=== PATIENT | male | born 1985 | race Hispanic/Latino ===

== ENCOUNTER 2020-02-07 17:11 | Inpatient (IN) | payer MEDICAID, OTHER, SELFPAY ==
[~2020-02-07 17:11] MED LIST: Iopamidol 370 76% 100 ML VIAL ONE
[2020-02-07] MEDS ORDERED: CEFAZOLIN 1 GM VIAL ONE (17:20)
[2020-02-07] MEDS ORDERED: Adacel (T-DAP) 0.5 ML SYRINGE ONE (17:20)
[2020-02-07 17:25] LABS: Base Excess-Venous -3.7 mmol/L (-2.0 to 3.0); Bicarbonate (HCO3v) 23.9 mmol/L (22.0-28.0); CO2 Tension (PvCO2) 51.5 mmHg (40.0-50.0); Calcium, Ionized 1.17 mmol/L (See Comments:); Chloride 101 mmol/L (98-107); Glucose 227 mg/dL (70-105); Hemoglobin - Calc 15.6 g/dL (14.0-18.0); Lactate 1.91 mmol/L (0.50-2.20); Potassium 3.3 mmol/L (3.5-5.1); Sodium 140 mmol/L (138-145); T. Carbon Dioxide 25.5 mmol/L (22.0-28.0)
[2020-02-07] MEDS ORDERED: Ketamine 50 MG/ML (10ML VIAL) ONE ×2 (17:25→19:19)
[2020-02-07] MEDS ORDERED: Rocuronium Bromide 10 MG/ML (10ML VIAL) ONE (17:26)
[2020-02-07 17:27] LABS: #Eosinphils 0.1 thou/uL (0.0-0.7); #Lymphocytes 3.2 thou/uL (1.20-3.40); #Monocytes 0.8 thou/uL (0.11-0.59); %Basophils 0.2 % (0.0-1.0); %Eosinophils 0.4 % (0.0-10.0); %Lymphocytes 17.4 % (21.0-51.0); %Monocytes 4.7 % (0.0-10.0); %Neutrophils 77.3 % (42.0-75.0); Mean Corpuscular HGB CONC 32.4 g/dL (32.0-36.0); Mean Corpuscular Hemoglobin 30.5 pg (27.0-31.0); Mean Corpuscular Volume 94.3 fL (78.0-98.0); Mean Platelet Volume 9.1 fL (7.4-10.4); Platelet Count 210 thou/uL (130-400); RBC Distribution Width 12.1 % (11.5-14.5); Red Blood Cell (RBC) Count 4.91 mill/uL (4.70-6.10); White Blood Cell (WBC) Count 18.1 thou/uL (4.8-10.8)
[2020-02-07 17:30] LABS: INR-International Normal Ratio 0.9; Prothrombin Time 12.3 SEC (12.0-14.7)
[2020-02-07 17:31] LABS: PTT 21.8 SEC (22.9-36.1)
[2020-02-07 17:38] LABS: ALT (SGPT) 370 U/L (8-55); AST (SGOT) 315 U/L (5-34); Albumin 4.6 g/dL (3.5-5.0); Alkaline Phosphatase 91 U/L (40-110); Anion Gap 17 mmol/L (10-20); BUN (Urea Nitrogen) 15 mg/dL (8.9-20.6); Bilirubin, Total 0.6 mg/dL (0.2-1.2); Calc. Creatinine Clearance 0 mL/min (70-130); Calcium 9.2 mg/dL (7.8-10.44); Carbon Dioxide 26 mmol/L (22-29); Chloride 99 mmol/L (98-107); Estimated GFR-MDRD 61; Globulin 2.6 g/dL (2.4-3.5); Glucose 208 mg/dL (70-105); Potassium 3.5 mmol/L (3.5-5.1); Protein, Total 7.2 g/dL (6.0-8.3); Sodium 138 mmol/L (136-145)
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
[2020-02-07 17:47] LABS: Alcohol Less than 10 mg/dL (Less than 10); Lipase 92 U/L (8-78)
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
[2020-02-07] MEDS ORDERED: Dextrose 5% in Water 1,000 ML IV PRN (18:01)
[2020-02-07] MEDS ORDERED: Dextrose 50% Abboject 50 ML SYRINGE SLOW IVP PRN (18:01)
[2020-02-07 18:06] LABS: Actual Bicarbonate (HCO3a) 18.8 mEq/L (22-28); Analyzer IN Cardio ER; Base Excess (BEa) -5.4 mEq/L (-2.0 to +3.0); CO2 Tension 33.1 mmHg (35.0-45.0); Calcium, Ionized 1.14 mmol/L (1.12-1.30); Carboxyhemoglobin (COHb) 0.2 gm% (0.0-3.0); Hemoglobin (Hb) 14.3 g/dL (14.0-18.0); O2 Tension (PaO2) 130.5 mmHg (80.0-100.0); Potassium - ABG Lab 2.91 mmol/L (3.70-5.30); pH, Arterial 7.37 (7.35-7.45)
[2020-02-07 18:09] LABS: Puncture Site LRA
[2020-02-07 18:10] LABS: ALV-art Gradient 184.625 (0-20)
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
[2020-02-07] MEDS ORDERED: Sodium Chloride 0.9% 1,000 ML IV SCH (18:15)
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
[2020-02-07] MEDS ORDERED: Midazolam HCl 2 mg/2 ml Vial ONE (19:53)
--- NOTE | 2020-02-07 19:59 | RAD ---
EXAM: 2 views of the left shoulder HISTORY: Reduction of shoulder dislocation COMPARISON: 02/07/2020 at 6:52 PM FINDINGS: There is an unchanged stable comminuted fracture of the proximal humerus with persistent di slocation of the humeral head.. No degenerative changes are seen. The visualized thorax is unremarkable. IMPRESSION: Unchanged shoulder dislocation with comminuted adjacent humeral fracture
[2020-02-07 20:23] LABS: Lactic Acid 3.7 mmol/L (0.5-2.2)
[2020-02-07] MEDS ORDERED: Propofol BOLUS 1,000 MG/100 ML VIAL IV PRN (21:23)
[2020-02-07] MEDS ORDERED: DISCONTINUE PREVIOUS NARCOTIC PAIN MEDICATIONS AND BENZODIAZEPINES FS SCH (21:23)
[2020-02-07] MEDS ORDERED: Morphine 2 MG/ML SYRINGE SLOW IVP PRN (21:23)
[2020-02-07] MEDS ORDERED: Propofol 1,000 MG/100 ML VIAL IV ONE (21:23)
[2020-02-07] MEDS ORDERED: Fentanyl BOLUS 250 ML IVPB PRN (21:23)
[2020-02-07] MEDS ORDERED: Lorazepam 2 MG/ML VIAL SLOW IVP PRN (21:23)
[2020-02-07 21:50] VITALS: BMI 30.4
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
[2020-02-07] MEDS: Famotidine/PF 20 mg/2ml Vial SLOW IVP SCH (22:20)
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
[2020-02-07 23:24] LABS: Hemoglobin 13.9 g/dL (14.0-18.0)
[2020-02-08] MEDS: Clindamycin/D5W 600 MG in Premix Bag 1 BAG IVPB SCH ×4 (00:23→19:09)
[2020-02-08] MEDS ORDERED: Lidocaine 1% w/Epinephrine 1:100K 20 ML VIAL FS SCH (01:00)
[2020-02-08] MEDS: Acetaminophen 650 MG Suppository PR PRN ×2 (01:14→20:56)
[2020-02-08] MEDS ORDERED: Ventilator Sedation Protocol 1 EACH FS SCH (03:15)
[2020-02-08] MEDS: Sodium Chloride 0.9% 1,000 ML IV SCH ×3 (03:35→18:53)
[2020-02-08] MEDS: fentaNYL Citrate/PF 2,000 MCG in Sodium Chloride 0.9% 60 ML IV SCH ×2 (05:14→22:55)
[2020-02-08 05:38] LABS: Lactic Acid 2.6 mmol/L (0.5-2.2)
[2020-02-08 05:43] LABS: Anion Gap 13 mmol/L (10-20); BUN (Urea Nitrogen) 15 mg/dL (8.9-20.6); CK (CPK) 1292 U/L (30-200); Calc. Creatinine Clearance 130 mL/min (70-130); Calcium 7.5 mg/dL (7.8-10.44); Carbon Dioxide 20 mmol/L (22-29); Chloride 106 mmol/L (98-107); Estimated GFR-MDRD 84; Glucose 149 mg/dL (70-105); Magnesium 1.8 mg/dL (1.6-2.6); Phosphorus 2.4 mg/dL (2.3-4.7); Potassium 5.1 mmol/L (3.5-5.1); Sodium 134 mmol/L (136-145)
[2020-02-08 05:45] LABS: Band 21 % (5-11); Hemoglobin 12.1 g/dL (14.0-18.0); Lymphocytes 5 % (21-51); MDiff Complete? YES; Mean Corpuscular HGB CONC 34.3 g/dL (32.0-36.0); Mean Corpuscular Hemoglobin 32.4 pg (27.0-31.0); Mean Corpuscular Volume 94.4 fL (78.0-98.0); Mean Platelet Volume 9.4 fL (7.4-10.4); Monocytes 2 % (0-10); Neutrophil 72 % (42-75); Platelet Count 162 thou/uL (130-400); Platelet Morphology Comment Appears Adequate; RBC Distribution Width 12.1 % (11.5-14.5); RBC Morphology Normal; Red Blood Cell (RBC) Count 3.74 mill/uL (4.70-6.10)
[2020-02-08 06:05] LABS: Bacteria/HPF None Seen HPF (None Seen); Bilirubin Negative (Negative); Blood, Urine 1+ (Negative); Clarity Clear (Clear); Glucose, Urine (Dipstick) 100 mg/dL (Negative); Leukocyte Negative Leu/uL (Negative); Nitrite Negative (Negative); Protein, Urine (Dipstick) 10 mg/dL (Neg-Trace); Squamous Epithelial 0-3 HPF (0-3); Urobilinogen Normal mg/dL (Less than 2); WBC/HPF 0-3 HPF (0-3)
[2020-02-08 06:08] LABS: Amphetamine Not Detected (NotDetected); Barbiturates Screen Not Detected (NotDetected); Benzodiazepine Screen Not Detected (NotDetected); Cocaine Metabolite Screen Not Detected (NotDetected); Medtox Control Line Valid? VALID (VALID); Medtox Reader # READER 4; Methadone Not Detected (NotDetected); Methamphetamine Not Detected (NotDetected); Opiate Screen Not Detected (NotDetected); Oxycodone Screen Not Detected (NotDetected); Phencyclidine (PCP) Not Detected (NotDetected); THC/Cannabinoid Screen Not Detected (NotDetected); Tricyclic Screen Not Detected (NotDetected); Urine Culture Reflex No No
[2020-02-08] MEDS ORDERED: Sodium Chloride 0.9% 500 ML IVPB SCH (06:30)
[2020-02-08] MEDS ORDERED: Magnesium Sulfate 3 GM in Sodium Chloride 0.9% 250 ML 250 ML IVPB SCH (06:30)
[2020-02-08] MEDS: Propofol 1,000 MG/100 ML VIAL IV PRN ×2 (06:51→23:40)
[2020-02-08] MEDS ORDERED: Fentanyl 250 MCG/5 ML VIAL ONE (07:04)
[2020-02-08] MEDS ORDERED: Bupivacaine PF 0.5% 30 ML VIAL ONE (07:39)
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
[2020-02-08] MEDS ORDERED: FLU VACC QS2019-20(6MOS UP)/PF 60 MCG/0.5 ML SYRINGE IM ONE (09:00)
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
[2020-02-08] MEDS ORDERED: Fentanyl 100 MCG/2 ML VIAL ONE (11:08)
[2020-02-08] MEDS ORDERED: Vecuronium 10 MG VIAL ONE ×2 (11:11→13:04)
[2020-02-08] MEDS ORDERED: Lidocaine 1% PF 5 ML VIAL ONE (11:11)
[2020-02-08] MEDS ORDERED: PROPOFOL 200 MG/20 ML VIAL ONE (11:11)
[2020-02-08] MEDS ORDERED: Rocuronium Bromide 10 MG/ML (10ML VIAL) ONE (11:11)
[2020-02-08] MEDS ORDERED: Midazolam HCl 2 mg/2 ml Vial ONE ×2 (11:35→15:05)
[2020-02-08] MEDS ORDERED: CEFAZOLIN 1 GM VIAL ONE (12:09)
[2020-02-08] MEDS ORDERED: Rocuronium Bromide 50 MG/5 ML VIAL ONE ×2 (14:06→15:00)
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
--- NOTE | 2020-02-08 16:37 | RAD ---
EXAM: 2 views of the left shoulder HISTORY: Left shoulder fracture or dislocation COMPARISON: 02/07/2020 FINDINGS: Limited intraoperative fluoroscopic views show the patient is status post plate and screw f ixation of the comminuted proximal humerus fracture. There is been reduction of the dislocated glenohumeral joint. IMPRESSION: Status post ORIF of left shoulder/humerus fracture dislocation
[2020-02-08] MEDS: Sodium Chloride 0.9% 500 ML IV SCH ×2 (18:10→18:20)
[2020-02-08] MEDS: Famotidine/PF 20 mg/2ml Vial SLOW IVP SCH ×2 (18:20→21:26)
[2020-02-08] MEDS: CEFAZOLIN 2 GM in Premix Bag 1 BAG IVPB SCH ×2 (18:57→22:41)
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
[2020-02-08] MEDS: Ondansetron PF 4 MG/2 ML Vial IVP PRN (20:56)
[2020-02-08] MEDS: Enoxaparin Sodium 30 MG/0.3 ML SYRINGE SC SCH (21:26)
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
[2020-02-09] MEDS: Clindamycin/D5W 600 MG in Premix Bag 1 BAG IVPB SCH ×4 (00:39→17:46)
[2020-02-09] MEDS: Ondansetron PF 4 MG/2 ML Vial IVP PRN ×2 (03:05→21:01)
[2020-02-09] MEDS: Sodium Chloride 0.9% 1,000 ML IV SCH ×3 (05:47→21:07)
[2020-02-09] MEDS: CEFAZOLIN 2 GM in Premix Bag 1 BAG IVPB SCH ×3 (06:01→21:04)
[2020-02-09 07:34] LABS: Anion Gap 9 mmol/L (10-20); BUN (Urea Nitrogen) 12 mg/dL (8.9-20.6); Calc. Creatinine Clearance 120 mL/min (70-130); Calcium 7.1 mg/dL (7.8-10.44); Carbon Dioxide 24 mmol/L (22-29); Chloride 107 mmol/L (98-107); Estimated GFR-MDRD 77; Glucose 152 mg/dL (70-105); Magnesium 2.2 mg/dL (1.6-2.6); Potassium 4.2 mmol/L (3.5-5.1); Sodium 136 mmol/L (136-145)
[2020-02-09 07:37] LABS: Phosphorus 1.7 mg/dL (2.3-4.7)
[2020-02-09 07:47] LABS: Potassium 4.3 mmol/L (3.5-5.1)
[2020-02-09] MEDS: Ketorolac Tromethamine 30 MG/ML VIAL IVP SCH ×4 (08:18→20:07)
[2020-02-09 08:22] LABS: #Lymphocytes 1.4 thou/uL (1.20-3.40); #Monocytes 0.7 thou/uL (0.11-0.59); #Neutrophils 5.7 thou/uL (1.40-6.50); %Basophils 0.1 % (0.0-1.0); %Eosinophils 0.1 % (0.0-10.0); %Lymphocytes 17.9 % (21.0-51.0); %Monocytes 9.2 % (0.0-10.0); %Neutrophils 72.6 % (42.0-75.0); Hemoglobin 8.4 g/dL (14.0-18.0); MDiff Complete? YES; Mean Corpuscular HGB CONC 33.3 g/dL (32.0-36.0); Mean Corpuscular Hemoglobin 32.3 pg (27.0-31.0); Mean Corpuscular Volume 96.9 fL (78.0-98.0); Mean Platelet Volume 9.2 fL (7.4-10.4); Platelet Count 109 thou/uL (130-400); Platelet Morphology Comment Appears Decreased; Polychromasia SLIGHT = 2-3 cells (100X) (0-2/hpf); RBC Distribution Width 12.3 % (11.5-14.5); Red Blood Cell (RBC) Count 2.61 mill/uL (4.70-6.10); White Blood Cell (WBC) Count 7.8 thou/uL (4.8-10.8)
[2020-02-09] MEDS: Propofol 1,000 MG/100 ML VIAL IV PRN (08:24)
[2020-02-09] MEDS: Famotidine/PF 20 mg/2ml Vial SLOW IVP SCH ×2 (08:25→20:07)
[2020-02-09] MEDS: Enoxaparin Sodium 30 MG/0.3 ML SYRINGE SC SCH ×2 (08:25→20:07)
[2020-02-09] MEDS: fentaNYL Citrate/PF 2,000 MCG in Sodium Chloride 0.9% 60 ML IV SCH ×2 (09:30→19:40)
[2020-02-09] MEDS: Ascorbic Acid 500 mg Chewable Tablet PO SCH ×2 (09:35→20:08)
[2020-02-09] MEDS: Acetaminophen 650 MG Suppository PR SCH ×3 (09:36→20:08)
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
--- NOTE | 2020-02-09 10:37 | RAD ---
PORTABLE CHEST: Date: 02/09/2020 HISTORY: Possible aspiration. COMPARISON: 02/07/2020 exam. FINDINGS: Heart size is borderline. Tracheostomy tube has now been placed since that prior study. There is also now opacification of the left lung base. This could be related to pleural effusion, infiltrate, or p ulmonary contusion given patient's history. The right lung is clear. No pneumothorax is visualized. P ostoperative changes of the left shoulder are present. IMPRESSION: Increasing density seen in the left lung base. This could be on the basis of atelectasis, infiltrate, or pulmonary contusion. The possibility that there is some pleural effusion should also be considere d. POS: [facility]
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
[2020-02-09] MEDS: Ferrous Sulfate 325 MG TAB PO SCH (16:12)
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
[2020-02-10] MEDS: Clindamycin/D5W 600 MG in Premix Bag 1 BAG IVPB SCH ×2 (00:38→06:08)
[2020-02-10] MEDS: Propofol 1,000 MG/100 ML VIAL IV PRN ×3 (00:39→17:45)
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
[2020-02-10] MEDS: Ketorolac Tromethamine 30 MG/ML VIAL IVP SCH ×3 (02:42→14:26)
[2020-02-10] MEDS: Acetaminophen 650 MG Suppository PR SCH ×2 (02:43→08:03)
[2020-02-10 04:56] LABS: #Lymphocytes 0.9 thou/uL (1.20-3.40); #Monocytes 0.4 thou/uL (0.11-0.59); %Basophils 0.4 % (0.0-1.0); %Eosinophils 0.3 % (0.0-10.0); %Lymphocytes 16.8 % (21.0-51.0); %Monocytes 8.1 % (0.0-10.0); %Neutrophils 74.4 % (42.0-75.0); Hemoglobin 6.2 g/dL (14.0-18.0); Mean Corpuscular HGB CONC 35.3 g/dL (32.0-36.0); Mean Corpuscular Volume 96.3 fL (78.0-98.0); Mean Platelet Volume 8.8 fL (7.4-10.4); Platelet Count 99 thou/uL (130-400); RBC Distribution Width 11.9 % (11.5-14.5); Red Blood Cell (RBC) Count 1.83 mill/uL (4.70-6.10); White Blood Cell (WBC) Count 5.4 thou/uL (4.8-10.8)
[2020-02-10 05:17] LABS: Anion Gap 8 mmol/L (10-20); BUN (Urea Nitrogen) 9 mg/dL (8.9-20.6); Calc. Creatinine Clearance 160 mL/min (70-130); Calcium 7.3 mg/dL (7.8-10.44); Carbon Dioxide 27 mmol/L (22-29); Chloride 109 mmol/L (98-107); Estimated GFR-MDRD Greater than 90; Glucose 123 mg/dL (70-105); Magnesium 2.3 mg/dL (1.6-2.6); Potassium 3.9 mmol/L (3.5-5.1); Sodium 140 mmol/L (136-145)
[2020-02-10 05:23] LABS: Phosphorus 1.6 mg/dL (2.3-4.7)
[2020-02-10] MEDS: fentaNYL Citrate/PF 2,000 MCG in Sodium Chloride 0.9% 60 ML IV SCH ×2 (05:56→20:34)
[2020-02-10] MEDS ORDERED: Sodium Phosphate 30 MMOL in Sodium Chloride 0.9% 250 ML 250 ML IVPB SCH (06:00)
[2020-02-10] MEDS: Sodium Chloride 0.9% 1,000 ML IV SCH ×2 (06:08→16:22)
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
[2020-02-10] MEDS: Famotidine/PF 20 mg/2ml Vial SLOW IVP SCH ×2 (08:03→20:21)
[2020-02-10] MEDS ORDERED: Midazolam HCl 2 mg/2 ml Vial ONE (08:11)
[2020-02-10] MEDS ORDERED: SUGAMMADEX SODIUM 500 MG/5 ML VIAL ONE (08:11)
[2020-02-10] MEDS: Ferrous Sulfate 325 MG TAB PO SCH ×2 (08:40→16:22)
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
[2020-02-10] MEDS: Piperacillin/Tazobactam 3.375 GM in Sodium Chloride 0.9% 100 ML IVPB SCH ×3 (08:44→20:20)
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
[2020-02-10] MEDS: Enoxaparin Sodium 30 MG/0.3 ML SYRINGE SC SCH ×2 (09:00→20:33)
[2020-02-10] MEDS: Saccharomyces boulardii 250 MG CAP PO SCH ×2 (09:00→20:21)
[2020-02-10] MEDS: Ascorbic Acid 500 mg Chewable Tablet PO SCH ×2 (09:00→20:21)
--- NOTE | 2020-02-10 10:03 | PRG ---
DATE OF SERVICE: 02/10/2020 TIME: 9:49 a.m. SUBJECTIVE: The patient is resting comfortably in bed. No acute 24-hour events. He did have a drop in hemoglobin over the last 2 days from 12.1 to 8.4 to 6.2 today, which he has been transfused PRBCs. OBJECTIVE: Facial wounds appear to be hemostatic. Arch bars are in place. The patient is on ventilator with tracheostomy. ASSESSMENT/PLAN: Dr. Gant to perform PEG tube today for feeding access as we will need to wire the jaw shut during our reconstruction of the mandible in the mid and upper one thirds of the face. Our plan will be for tomorrow morning, 02/11/2020, to take the patient to OR for ORIF of facial fractures including mandible and wiring of the jaw shut. We will cancel procedure today waiting on stabilization of hemoglobin/hematocrit as well as PEG tube. Job ID: [id number]
[2020-02-10] MEDS ORDERED: traMADol HCl 50 MG TAB PO PRN (12:46)
[2020-02-10] MEDS: Acetaminophen 650 MG/20.3 ML UDCUP PO SCH ×2 (14:29→20:20)
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
[2020-02-10] MEDS: traMADol HCl 50 MG TAB PO SCH (17:40)
[2020-02-10] MEDS ORDERED: Ibuprofen 600 MG TAB PO PRN (17:51)
[2020-02-10] MEDS: Gabapentin 100 MG CAP PO SCH (20:21)
[2020-02-10 22:29] LABS: Hemoglobin 7.6 g/dL (14.0-18.0)
[2020-02-11] MEDS: Acetaminophen 650 MG/20.3 ML UDCUP PO SCH ×5 (00:03→21:49)
[2020-02-11] MEDS: traMADol HCl 50 MG TAB PO SCH ×4 (00:04→20:31)
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
[2020-02-11] MEDS: Piperacillin/Tazobactam 3.375 GM in Sodium Chloride 0.9% 100 ML IVPB SCH ×4 (03:19→21:48)
[2020-02-11] MEDS: Sodium Chloride 0.9% 1,000 ML IV SCH ×4 (03:19→21:53)
[2020-02-11 04:42] LABS: Anion Gap 8 mmol/L (10-20); BUN (Urea Nitrogen) 9 mg/dL (8.9-20.6); Calc. Creatinine Clearance 177 mL/min (70-130); Calcium 7.6 mg/dL (7.8-10.44); Carbon Dioxide 26 mmol/L (22-29); Chloride 112 mmol/L (98-107); Estimated GFR-MDRD Greater than 90; Glucose 103 mg/dL (70-105); Magnesium 2.3 mg/dL (1.6-2.6); Potassium 4.1 mmol/L (3.5-5.1); Sodium 142 mmol/L (136-145)
[2020-02-11 04:45] LABS: Phosphorus 1.9 mg/dL (2.3-4.7)
[2020-02-11 04:57] LABS: Band 1 % (5-11); Hemoglobin 7.5 g/dL (14.0-18.0); Hypochromia SLIGHT = 6-15 cells (100X) (0-5/hpf); Lymphocytes 14 % (21-51); MDiff Complete? YES; Mean Corpuscular Hemoglobin 31.9 pg (27.0-31.0); Mean Platelet Volume 8.5 fL (7.4-10.4); Neutrophil 85 % (42-75); Nucleated RBC 2 % (0); Platelet Count 126 thou/uL (130-400); Platelet Morphology Comment Appears Adequate; RBC Distribution Width 13.7 % (11.5-14.5); Red Blood Cell (RBC) Count 2.36 mill/uL (4.70-6.10); White Blood Cell (WBC) Count 5.4 thou/uL (4.8-10.8)
[2020-02-11] MEDS: Sodium Phosphate 30 MMOL in Sodium Chloride 0.9% 250 ML 250 ML IVPB SCH ×2 (06:43→09:46)
[2020-02-11] MEDS: Propofol 1,000 MG/100 ML VIAL IV PRN ×2 (06:46→20:13)
[2020-02-11] MEDS ORDERED: Famotidine/PF 20 mg/2ml Vial ONE (06:54)
[2020-02-11] MEDS ORDERED: Fentanyl 100 MCG/2 ML VIAL ONE (06:54)
[2020-02-11] MEDS ORDERED: Chlorhexidine Gluconate 15 ML UDCUP SSP ONE (06:55)
[2020-02-11] MEDS ORDERED: Hydrocortisone 1% Cream 30 GM TUBE ONE (06:55)
[2020-02-11] MEDS ORDERED: Lidocaine 1% w/Epinephrine 1:100K 20 ML VIAL ONE (06:55)
[2020-02-11] MEDS: Ferrous Sulfate 325 MG TAB PO SCH ×2 (09:47→17:50)
[2020-02-11] MEDS: Ascorbic Acid 500 mg Chewable Tablet PO SCH ×2 (09:48→21:49)
[2020-02-11] MEDS: Gabapentin 100 MG CAP PO SCH (09:48)
[2020-02-11] MEDS: Enoxaparin Sodium 30 MG/0.3 ML SYRINGE SC SCH ×2 (09:48→21:49)
[2020-02-11] MEDS: Famotidine/PF 20 mg/2ml Vial SLOW IVP SCH ×2 (09:48→21:52)
[2020-02-11] MEDS: Saccharomyces boulardii 250 MG CAP PO SCH ×2 (09:49→21:49)
[2020-02-11] MEDS ORDERED: Metoclopramide HCl 10 MG/2 ML VIAL ONE (10:13)
[2020-02-11] MEDS ORDERED: Rocuronium Bromide 10 MG/ML (10ML VIAL) ONE (10:13)
[2020-02-11] MEDS ORDERED: Vecuronium 10 MG VIAL ONE (10:13)
[2020-02-11] MEDS ORDERED: Labetalol HCl 100 MG/20 ML VIAL ONE (10:13)
[2020-02-11] MEDS ORDERED: Ophthalmic Irrigation Solution 15 ML ONE (11:42)
[2020-02-11] MEDS ORDERED: Bacitracin Zinc Ointment 30 gm TUBE ONE (11:42)
[2020-02-11 14:40] LABS: Hemoglobin 8.9 g/dL (14.0-18.0); Mean Corpuscular HGB CONC 34.2 g/dL (32.0-36.0); Mean Corpuscular Hemoglobin 31.3 pg (27.0-31.0); Mean Corpuscular Volume 91.5 fL (78.0-98.0); Mean Platelet Volume 8.4 fL (7.4-10.4); Platelet Count 147 thou/uL (130-400); RBC Distribution Width 13.9 % (11.5-14.5); Red Blood Cell (RBC) Count 2.86 mill/uL (4.70-6.10); White Blood Cell (WBC) Count 7.1 thou/uL (4.8-10.8)
[2020-02-11 14:46] LABS: Prothrombin Time 13.3 SEC (12.0-14.7)
[2020-02-11 14:56] LABS: Band 13 % (5-11); Eosinophils 1 % (0-10); Lymphocytes 15 % (21-51); MDiff Complete? YES; Monocytes 2 % (0-10); Myelocyte 1 % (0-0); Neutrophil 68 % (42-75); Nucleated RBC 5 % (0); Platelet Morphology Comment Appears Adequate; Polychromasia SLIGHT = 2-3 cells (100X) (0-2/hpf)
[2020-02-11 15:03] LABS: Anion Gap 9 mmol/L (10-20); BUN (Urea Nitrogen) 10 mg/dL (8.9-20.6); Calc. Creatinine Clearance 180 mL/min (70-130); Calcium 7.8 mg/dL (7.8-10.44); Carbon Dioxide 26 mmol/L (22-29); Chloride 113 mmol/L (98-107); Estimated GFR-MDRD Greater than 90; Glucose 119 mg/dL (70-105); Potassium 4.1 mmol/L (3.5-5.1); Sodium 144 mmol/L (136-145)
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
[2020-02-11] MEDS: Gabapentin 300 MG CAP PO SCH ×2 (15:10→21:49)
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
[2020-02-11] MEDS: fentaNYL Citrate/PF 2,000 MCG in Sodium Chloride 0.9% 60 ML IV SCH (20:11)
[2020-02-11] MEDS: Dexamethasone 4 mg/ml Vial SLOW IVP SCH (21:53)
[2020-02-12] MEDS: traMADol HCl 50 MG TAB PO SCH ×4 (00:19→17:02)
[2020-02-12] MEDS: Piperacillin/Tazobactam 3.375 GM in Sodium Chloride 0.9% 100 ML IVPB SCH ×4 (03:42→20:43)
[2020-02-12] MEDS: Acetaminophen 650 MG/20.3 ML UDCUP PO SCH ×4 (03:42→20:44)
[2020-02-12 04:06] LABS: Prothrombin Time 13.1 SEC (12.0-14.7)
[2020-02-12 04:21] LABS: Anion Gap 9 mmol/L (10-20); BUN (Urea Nitrogen) 12 mg/dL (8.9-20.6); Calc. Creatinine Clearance 175 mL/min (70-130); Carbon Dioxide 24 mmol/L (22-29); Chloride 112 mmol/L (98-107); Estimated GFR-MDRD Greater than 90; Glucose 171 mg/dL (70-105); Magnesium 2.2 mg/dL (1.6-2.6); Potassium 4.3 mmol/L (3.5-5.1); Sodium 141 mmol/L (136-145)
[2020-02-12 04:33] LABS: Band 13 % (5-11); Hemoglobin 9.2 g/dL (14.0-18.0); Lymphocytes 1 % (21-51); MDiff Complete? YES; Mean Corpuscular HGB CONC 34.5 g/dL (32.0-36.0); Mean Corpuscular Hemoglobin 31.7 pg (27.0-31.0); Mean Corpuscular Volume 91.9 fL (78.0-98.0); Mean Platelet Volume 8.6 fL (7.4-10.4); Monocytes 7 % (0-10); Neutrophil 79 % (42-75); Platelet Count 171 thou/uL (130-400); Platelet Morphology Comment Appears Adequate; Red Blood Cell (RBC) Count 2.89 mill/uL (4.70-6.10); White Blood Cell (WBC) Count 6.4 thou/uL (4.8-10.8)
[2020-02-12] MEDS ORDERED: hydrALAZINE 20 MG/ML VIAL SLOW IVP PRN (05:36)
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
[2020-02-12] MEDS: Dexamethasone 4 mg/ml Vial SLOW IVP SCH ×3 (06:18→21:23)
[2020-02-12] MEDS: Sodium Chloride 0.9% 1,000 ML IV SCH ×3 (06:19→17:10)
[2020-02-12] MEDS: Enoxaparin Sodium 30 MG/0.3 ML SYRINGE SC SCH ×2 (08:15→20:45)
[2020-02-12] MEDS: Famotidine/PF 20 mg/2ml Vial SLOW IVP SCH (08:15)
[2020-02-12] MEDS: Ferrous Sulfate 325 MG TAB PO SCH ×2 (08:16→15:03)
[2020-02-12] MEDS: Gabapentin 300 MG CAP PO SCH ×3 (08:16→20:45)
[2020-02-12] MEDS: Ascorbic Acid 500 mg Chewable Tablet PO SCH ×2 (08:16→20:45)
[2020-02-12] MEDS: Saccharomyces boulardii 250 MG CAP PO SCH ×2 (08:17→20:45)
--- NOTE | 2020-02-12 09:45 | RAD ---
PORTABLE AP CHEST XRAY: HISTORY: Tracheotomy. Followup evaluation. COMPARISON: 02/09/2020. FINDINGS: Tracheostomy device remains in place. This examination is obtained in shallow depth of inspiration w hich, in combination with portable technique, accentuates the cardiac silhouette and bronchovascular markings. However, there is increased density seen in the perihilar regions bilaterally when compare d to the prior exam. The opacity on the left has a more veil-like appearance and may represent pleur al fluid layering posteriorly. Focal pneumonia in either perihilar region could not be entirely exc luded. Continued followup is suggested. Surgical clips again overlie the left shoulder with postsur gical changes left humerus. IMPRESSION: 1. Increased density within the perihilar regions bilaterally, greater on the left, with a more veil -like opacity on the left which could be related to pleural fluid layering posteriorly. Pneumonia bi laterally could not be entirely excluded. Continued followup is recommended. 2. Tracheostomy device again noted in place. POS: TERESSA
[2020-02-12] MEDS ORDERED: Insulin Regular 300 UNITS/3 ML VIAL SC PRN (11:10)
[2020-02-12] MEDS ORDERED: Furosemide 40 MG/4 ML VIAL SLOW IVP SCH (11:15)
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
[2020-02-12] MEDS: Insulin Regular 300 UNITS/3 ML VIAL SC PRN ×2 (15:23→20:48)
[2020-02-12] MEDS: Famotidine 20 MG TAB PO SCH (20:45)
[2020-02-13] MEDS: traMADol HCl 50 MG TAB PO SCH ×4 (00:23→17:40)
[2020-02-13] MEDS: Piperacillin/Tazobactam 3.375 GM in Sodium Chloride 0.9% 100 ML IVPB SCH ×4 (01:17→20:42)
[2020-02-13] MEDS: Insulin Regular 300 UNITS/3 ML VIAL SC PRN (03:44)
[2020-02-13] MEDS: Acetaminophen 650 MG/20.3 ML UDCUP PO SCH ×4 (03:46→20:43)
[2020-02-13 05:17] LABS: Anion Gap 14 mmol/L (10-20); BUN (Urea Nitrogen) 19 mg/dL (8.9-20.6); Calc. Creatinine Clearance 177 mL/min (70-130); Calcium 8.4 mg/dL (7.8-10.44); Carbon Dioxide 20 mmol/L (22-29); Chloride 111 mmol/L (98-107); Estimated GFR-MDRD Greater than 90; Glucose 178 mg/dL (70-105); Magnesium 2.4 mg/dL (1.6-2.6); Potassium 3.7 mmol/L (3.5-5.1); Sodium 141 mmol/L (136-145)
[2020-02-13 05:21] LABS: Band 1 % (5-11); Hemoglobin 8.8 g/dL (14.0-18.0); Hypochromia SLIGHT = 6-15 cells (100X) (0-5/hpf); Lymphocytes 6 % (21-51); MDiff Complete? YES; Monocytes 2 % (0-10); Neutrophil 91 % (42-75); Nucleated RBC 1 % (0); Platelet Count 223 thou/uL (130-400); Platelet Morphology Comment Appears Adequate; RBC Distribution Width 13.5 % (11.5-14.5); Red Blood Cell (RBC) Count 2.84 mill/uL (4.70-6.10); White Blood Cell (WBC) Count 6.9 thou/uL (4.8-10.8)
[2020-02-13 05:23] LABS: Phosphorus 1.7 mg/dL (2.3-4.7)
[2020-02-13] MEDS: Sodium Chloride 0.9% 1,000 ML IV SCH (05:42)
[2020-02-13] MEDS ORDERED: Potassium Phosphate 30 MMOL in Sodium Chloride 0.9% 250 ML 250 ML IVPB SCH ×2 (06:00→17:45)
[2020-02-13] MEDS: Ferrous Sulfate 325 MG TAB PO SCH ×2 (07:58→17:40)
[2020-02-13] MEDS: Gabapentin 300 MG CAP PO SCH ×3 (08:02→20:44)
[2020-02-13] MEDS: Saccharomyces boulardii 250 MG CAP PO SCH ×2 (08:02→20:44)
[2020-02-13] MEDS: Ascorbic Acid 500 mg Chewable Tablet PO SCH ×2 (08:02→20:43)
[2020-02-13] MEDS: Enoxaparin Sodium 30 MG/0.3 ML SYRINGE SC SCH ×2 (08:02→21:06)
[2020-02-13] MEDS: Famotidine 20 MG TAB PO SCH ×2 (08:02→20:44)
[2020-02-13] MEDS: Senokot S 8.6-50 MG TAB PO SCH ×2 (08:28→21:07)
[2020-02-13] MEDS: Polyethylene Glycol 3350 17 GM Packet PO SCH (08:28)
[2020-02-13] MEDS ORDERED: Furosemide 40 MG/4 ML VIAL SLOW IVP SCH (08:30)
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
--- NOTE | 2020-02-13 11:12 | EKG ---
Test Reason : Blood Pressure : / mmHG Vent. Rate : 157 BPM Atrial Rate : 157 BPM P-R Int : 000 ms QRS Dur : 084 ms QT Int : 302 ms P-R-T Axes : 000 -27 024 degrees QTc Int : 488 ms Sinus tachycardia Otherwise normal ECG Confirmed by JENIN GARCIA, DEEP Flores ([id number]), editor book VAUGHN VENCES ([id number]) on 02/13/2020 11:12:32 AM Referred By: Confirmed By:DEEP ARTEAGA MD
[2020-02-13 17:25] LABS: Anion Gap 11 mmol/L (10-20); BUN (Urea Nitrogen) 23 mg/dL (8.9-20.6); Calc. Creatinine Clearance 177 mL/min (70-130); Calcium 8.4 mg/dL (7.8-10.44); Carbon Dioxide 22 mmol/L (22-29); Chloride 110 mmol/L (98-107); Estimated GFR-MDRD Greater than 90; Glucose 127 mg/dL (70-105); Magnesium 2.2 mg/dL (1.6-2.6); Phosphorus 2.3 mg/dL (2.3-4.7); Potassium 3.1 mmol/L (3.5-5.1); Sodium 140 mmol/L (136-145)
[2020-02-14] MEDS: traMADol HCl 50 MG TAB PO SCH ×4 (00:14→15:14)
[2020-02-14] MEDS: Piperacillin/Tazobactam 3.375 GM in Sodium Chloride 0.9% 100 ML IVPB SCH ×4 (01:42→21:41)
[2020-02-14] MEDS: Acetaminophen 650 MG/20.3 ML UDCUP PO SCH ×4 (05:07→21:44)
[2020-02-14 05:54] LABS: Hemoglobin 10.1 g/dL (14.0-18.0); Mean Corpuscular HGB CONC 33.5 g/dL (32.0-36.0); Mean Corpuscular Hemoglobin 30.6 pg (27.0-31.0); Mean Corpuscular Volume 91.3 fL (78.0-98.0); Mean Platelet Volume 8.5 fL (7.4-10.4); Platelet Count 329 thou/uL (130-400); RBC Distribution Width 13.9 % (11.5-14.5); Red Blood Cell (RBC) Count 3.31 mill/uL (4.70-6.10); White Blood Cell (WBC) Count 7.3 thou/uL (4.8-10.8)
[2020-02-14 06:24] LABS: Anion Gap 16 mmol/L (10-20); BUN (Urea Nitrogen) 25 mg/dL (8.9-20.6); Calc. Creatinine Clearance 177 mL/min (70-130); Calcium 8.3 mg/dL (7.8-10.44); Carbon Dioxide 19 mmol/L (22-29); Chloride 112 mmol/L (98-107); Estimated GFR-MDRD Greater than 90; Glucose 111 mg/dL (70-105); Magnesium 2.3 mg/dL (1.6-2.6); Potassium 3.7 mmol/L (3.5-5.1); Sodium 143 mmol/L (136-145)
[2020-02-14 06:36] LABS: Band 6 % (5-11); Eosinophils 3 % (0-10); Lymphocytes 24 % (21-51); MDiff Complete? YES; Metamyelocyte 1 % (0-0); Monocytes 2 % (0-10); Myelocyte 3 % (0-0); Neutrophil 61 % (42-75); Nucleated RBC 1 % (0)
[2020-02-14] MEDS ORDERED: Piperacillin/Tazobactam 3.375 GM VIAL ONE (09:47)
[2020-02-14] MEDS ORDERED: Sodium Chloride 0.9% 100 ML ONE (09:47)
[2020-02-14] MEDS ORDERED: Glycopyrrolate 0.2 MG/ML 5 ML SYRINGE ONE (09:48)
[2020-02-14] MEDS ORDERED: PHENYLEPHRINE-NS 100 MCG/ML 10 ML SYRINGE ONE (09:48)
[2020-02-14] MEDS ORDERED: Ondansetron PF 4 MG/2 ML Vial ONE (09:48)
[2020-02-14] MEDS ORDERED: Fentanyl 100 MCG/2 ML VIAL ONE (09:48)
[2020-02-14] MEDS ORDERED: Rocuronium Bromide 10 MG/ML (10ML VIAL) ONE (09:48)
[2020-02-14] MEDS ORDERED: Lidocaine 1% PF 5 ML VIAL ONE (09:48)
[2020-02-14] MEDS ORDERED: Esmolol 100 MG/10 ML VIAL ONE (09:48)
[2020-02-14] MEDS ORDERED: PROPOFOL 200 MG/20 ML VIAL ONE (09:48)
[2020-02-14] MEDS ORDERED: Bacitracin Zinc Ointment 30 gm TUBE ONE (09:50)
[2020-02-14] MEDS ORDERED: Lidocaine 1% w/Epinephrine 1:100K 20 ML VIAL ONE (09:50)
[2020-02-14] MEDS ORDERED: Chlorhexidine Gluconate 15 ML UDCUP SSP ONE (09:50)
[2020-02-14] MEDS: Ferrous Sulfate 325 MG TAB PO SCH ×2 (10:11→15:14)
[2020-02-14] MEDS: Ascorbic Acid 500 mg Chewable Tablet PO SCH ×2 (10:11→21:42)
[2020-02-14] MEDS: Famotidine 20 MG TAB PO SCH ×2 (10:12→21:42)
[2020-02-14] MEDS: Enoxaparin Sodium 30 MG/0.3 ML SYRINGE SC SCH ×2 (10:12→21:42)
[2020-02-14] MEDS: Saccharomyces boulardii 250 MG CAP PO SCH ×2 (10:13→21:42)
[2020-02-14] MEDS: Gabapentin 300 MG CAP PO SCH ×3 (10:13→21:42)
[2020-02-14] MEDS: Tamsulosin HCl 0.4 MG CAP PO SCH (10:13)
[2020-02-14] MEDS: Polyethylene Glycol 3350 17 GM Packet PO SCH (10:13)
[2020-02-14] MEDS: Senokot S 8.6-50 MG TAB PO SCH ×2 (10:13→22:29)
[2020-02-14] MEDS ORDERED: Rocuronium Bromide 50 MG/5 ML VIAL ONE (12:24)
[2020-02-14] MEDS ORDERED: SUGAMMADEX SODIUM 200 MG/2 ML VIAL ONE (12:58)
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
[2020-02-14] MEDS ORDERED: Ondansetron HCl/PF 4 MG/2 ML Vial IVP PRN (13:17)
[2020-02-14] MEDS ORDERED: Promethazine HCl 25 MG/ML VIAL IM PRN (13:17)
[2020-02-14] MEDS ORDERED: Promethazine HCl 25 MG/ML VIAL SLOW IVP PRN (13:17)
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
[2020-02-15] MEDS: traMADol HCl 50 MG TAB PO SCH ×5 (00:14→23:20)
[2020-02-15] MEDS: Piperacillin/Tazobactam 3.375 GM in Sodium Chloride 0.9% 100 ML IVPB SCH ×4 (03:33→20:30)
[2020-02-15] MEDS: Acetaminophen 650 MG/20.3 ML UDCUP PO SCH ×4 (03:33→20:31)
[2020-02-15 06:20] LABS: Anion Gap 16 mmol/L (10-20); BUN (Urea Nitrogen) 23 mg/dL (8.9-20.6); Calc. Creatinine Clearance 164 mL/min (70-130); Calcium 8.4 mg/dL (7.8-10.44); Carbon Dioxide 19 mmol/L (22-29); Chloride 107 mmol/L (98-107); Estimated GFR-MDRD Greater than 90; Glucose 145 mg/dL (70-105); Magnesium 2.4 mg/dL (1.6-2.6); Phosphorus 2.8 mg/dL (2.3-4.7); Potassium 3.8 mmol/L (3.5-5.1); Sodium 138 mmol/L (136-145)
[2020-02-15 07:35] LABS: Band 10 % (5-11); Eosinophils 3 % (0-10); Hemoglobin 10.8 g/dL (14.0-18.0); Lymphocytes 22 % (21-51); MDiff Complete? YES; Mean Corpuscular HGB CONC 34.6 g/dL (32.0-36.0); Mean Corpuscular Hemoglobin 31.7 pg (27.0-31.0); Mean Corpuscular Volume 91.6 fL (78.0-98.0); Mean Platelet Volume 7.9 fL (7.4-10.4); Monocytes 6 % (0-10); Neutrophil 59 % (42-75); Platelet Count 382 thou/uL (130-400); RBC Distribution Width 13.7 % (11.5-14.5); Red Blood Cell (RBC) Count 3.42 mill/uL (4.70-6.10); White Blood Cell (WBC) Count 7.5 thou/uL (4.8-10.8)
[2020-02-15] MEDS ORDERED: Senokot S 8.6-50 MG TAB PO PRN (09:41)
[2020-02-15] MEDS ORDERED: Polyethylene Glycol 3350 17 GM Packet PO PRN (09:41)
[2020-02-15] MEDS: Enoxaparin Sodium 30 MG/0.3 ML SYRINGE SC SCH ×2 (10:10→20:31)
[2020-02-15] MEDS: Saccharomyces boulardii 250 MG CAP PO SCH ×2 (10:12→20:31)
[2020-02-15] MEDS: Ferrous Sulfate 325 MG TAB PO SCH ×2 (10:12→17:46)
[2020-02-15] MEDS: Tamsulosin HCl 0.4 MG CAP PO SCH (10:12)
[2020-02-15] MEDS: Ascorbic Acid 500 mg Chewable Tablet PO SCH ×2 (10:12→20:31)
[2020-02-15] MEDS: Famotidine 20 MG TAB PO SCH ×2 (10:13→20:31)
[2020-02-15] MEDS: Gabapentin 300 MG CAP PO SCH ×3 (10:13→20:31)
[2020-02-15] MEDS: Senokot S 8.6-50 MG TAB PO SCH (10:36)
[2020-02-15] MEDS: Polyethylene Glycol 3350 17 GM Packet PO SCH (10:36)
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
[2020-02-15] MEDS: Ibuprofen 600 MG TAB PO SCH (23:21)
[2020-02-16] MEDS: Piperacillin/Tazobactam 3.375 GM in Sodium Chloride 0.9% 100 ML IVPB SCH ×4 (03:17→20:24)
[2020-02-16] MEDS: Acetaminophen 650 MG/20.3 ML UDCUP PO SCH ×4 (03:18→20:23)
[2020-02-16] MEDS: traMADol HCl 50 MG TAB PO SCH ×3 (05:09→17:22)
[2020-02-16] MEDS: Ibuprofen 600 MG TAB PO SCH ×3 (05:09→20:24)
[2020-02-16 05:32] LABS: Anion Gap 12 mmol/L (10-20); BUN (Urea Nitrogen) 24 mg/dL (8.9-20.6); Calc. Creatinine Clearance 182 mL/min (70-130); Calcium 8.6 mg/dL (7.8-10.44); Carbon Dioxide 23 mmol/L (22-29); Chloride 106 mmol/L (98-107); Estimated GFR-MDRD Greater than 90; Glucose 134 mg/dL (70-105); Magnesium 2.2 mg/dL (1.6-2.6); Phosphorus 3.1 mg/dL (2.3-4.7); Potassium 3.7 mmol/L (3.5-5.1); Sodium 137 mmol/L (136-145)
[2020-02-16] MEDS: Ferrous Sulfate 325 MG TAB PO SCH ×2 (09:00→17:22)
[2020-02-16] MEDS ORDERED: Cyclobenzaprine 10 MG TAB PO PRN (09:28)
[2020-02-16] MEDS: Enoxaparin Sodium 30 MG/0.3 ML SYRINGE SC SCH ×2 (09:56→20:23)
[2020-02-16] MEDS: Ascorbic Acid 500 mg Chewable Tablet PO SCH ×2 (09:58→20:24)
[2020-02-16] MEDS: Tamsulosin HCl 0.4 MG CAP PO SCH (09:58)
[2020-02-16] MEDS: Gabapentin 300 MG CAP PO SCH ×3 (09:58→20:24)
[2020-02-16] MEDS: Saccharomyces boulardii 250 MG CAP PO SCH ×2 (09:58→20:24)
[2020-02-16] MEDS: Famotidine 20 MG TAB PO SCH ×2 (09:59→20:23)
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
[2020-02-16] MEDS: cloNIDine 0.2 MG TAB PO SCH ×2 (15:11→20:25)
[2020-02-16] MEDS: Chlorhexidine Gluconate 15 ML UDCUP SSP SCH (20:23)
[2020-02-17] MEDS: traMADol HCl 50 MG TAB PO SCH ×5 (00:19→23:21)
[2020-02-17] MEDS: Piperacillin/Tazobactam 3.375 GM in Sodium Chloride 0.9% 100 ML IVPB SCH ×4 (03:12→20:00)
[2020-02-17] MEDS: Acetaminophen 650 MG/20.3 ML UDCUP PO SCH ×4 (03:14→20:01)
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
[2020-02-17] MEDS: Ibuprofen 600 MG TAB PO SCH ×3 (05:38→20:02)
[2020-02-17] MEDS: Ascorbic Acid 500 mg Chewable Tablet PO SCH ×2 (08:04→20:02)
[2020-02-17] MEDS: cloNIDine 0.2 MG TAB PO SCH ×3 (08:04→20:02)
[2020-02-17] MEDS: Chlorhexidine Gluconate 15 ML UDCUP SSP SCH ×2 (08:04→20:01)
[2020-02-17] MEDS: Tamsulosin HCl 0.4 MG CAP PO SCH (08:05)
[2020-02-17] MEDS: Famotidine 20 MG TAB PO SCH ×2 (08:05→20:02)
[2020-02-17] MEDS: Ferrous Sulfate 325 MG TAB PO SCH ×2 (08:05→17:18)
[2020-02-17] MEDS: Enoxaparin Sodium 30 MG/0.3 ML SYRINGE SC SCH ×2 (08:05→20:03)
[2020-02-17] MEDS: Gabapentin 300 MG CAP PO SCH ×3 (08:05→20:02)
[2020-02-17] MEDS: Saccharomyces boulardii 250 MG CAP PO SCH ×2 (08:05→20:01)
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
[2020-02-18] MEDS: Piperacillin/Tazobactam 3.375 GM in Sodium Chloride 0.9% 100 ML IVPB SCH ×3 (02:54→15:47)
[2020-02-18] MEDS: Acetaminophen 650 MG/20.3 ML UDCUP PO SCH ×3 (03:04→15:47)
[2020-02-18] MEDS: traMADol HCl 50 MG TAB PO SCH ×2 (05:33→13:36)
[2020-02-18] MEDS: Ibuprofen 600 MG TAB PO SCH ×2 (05:33→13:37)
[2020-02-18] MEDS: cloNIDine 0.2 MG TAB PO SCH ×2 (08:51→15:47)
[2020-02-18] MEDS: Gabapentin 300 MG CAP PO SCH ×2 (08:51→15:47)
[2020-02-18] MEDS: Ferrous Sulfate 325 MG TAB PO SCH (08:51)
[2020-02-18] MEDS: Famotidine 20 MG TAB PO SCH (08:51)
[2020-02-18] MEDS: Saccharomyces boulardii 250 MG CAP PO SCH (08:51)
[2020-02-18] MEDS: Ascorbic Acid 500 mg Chewable Tablet PO SCH (08:51)
[2020-02-18] MEDS: Chlorhexidine Gluconate 15 ML UDCUP SSP SCH (08:52)
[2020-02-18] MEDS: Enoxaparin Sodium 30 MG/0.3 ML SYRINGE SC SCH (08:52)
[2020-02-18 15:30] VITALS: TEMP 97.8
[2020-02-18 15:47] VITALS: BP 140/81
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
== END 2020-02-18 18:01 | disposition home or self-care (01) | DRG 3 ==
LOC: ERS 17:11 → CCU 18:00 → SURG A 02-13 16:00
PROVIDERS: ADMIT Specialist; ATTEND Specialist
PROC: 0B110F4 Bypass Trachea to Cutaneous with Tracheostomy Device, Open Approach (ICD-10-PCS; principal; 2020-02-07)
PROC: 0HQ1XZZ Repair Face Skin, External Approach (ICD-10-PCS; 2020-02-07)
PROC: 5A1955Z Respiratory Ventilation, Greater than 96 Consecutive Hours (ICD-10-PCS; 2020-02-07)
PROC: 0BH17EZ Insertion of Endotracheal Airway into Trachea, Via Natural or Artificial Opening (ICD-10-PCS; 2020-02-07)
PROC: 0PSG04Z Reposition Left Humeral Shaft with Internal Fixation Device, Open Approach (ICD-10-PCS; 2020-02-08)
PROC: 0LS40ZZ Reposition Left Upper Arm Tendon, Open Approach (ICD-10-PCS; 2020-02-08)
PROC: 0NHT04Z Insertion of Internal Fixation Device into Right Mandible, Open Approach (ICD-10-PCS; 2020-02-08)
PROC: 0NHR04Z Insertion of Internal Fixation Device into Maxilla, Open Approach (ICD-10-PCS; 2020-02-08)
PROC: 0CTX0Z0 Resection of Lower Tooth, Single, Open Approach (ICD-10-PCS; 2020-02-08)
PROC: 0DH63UZ Insertion of Feeding Device into Stomach, Percutaneous Approach (ICD-10-PCS; 2020-02-10)
PROC: 0NSV04Z Reposition Left Mandible with Internal Fixation Device, Open Approach (ICD-10-PCS; 2020-02-11)
PROC: 0NS Head and Facial Bones, Reposition (ICD-10-PCS; 2020-02-11)
PROC: 0NS Head and Facial Bones, Reposition (ICD-10-PCS; 2020-02-11)
PROC: 0NSR34Z Reposition Maxilla with Internal Fixation Device, Percutaneous Approach (ICD-10-PCS; 2020-02-11)
PROC: 0NST34Z Reposition Right Mandible with Internal Fixation Device, Percutaneous Approach (ICD-10-PCS; 2020-02-11)
PROC: 0NPW04Z Removal of Internal Fixation Device from Facial Bone, Open Approach (ICD-10-PCS; 2020-02-14)
PROC: 0NSV34Z Reposition Left Mandible with Internal Fixation Device, Percutaneous Approach (ICD-10-PCS; 2020-02-14)
PROC: 0NST34Z Reposition Right Mandible with Internal Fixation Device, Percutaneous Approach (ICD-10-PCS; 2020-02-14)
DX: S42.202A Unspecified fracture of upper end of left humerus, initial encounter for closed fracture (principal); J96.00 Acute respiratory failure, unspecified whether with hypoxia or hypercapnia; R40.2222 Coma scale, best verbal response, incomprehensible words, at arrival to emergency department; S02.109A Fracture of base of skull, unspecified side, initial encounter for closed fracture; D62 Acute posthemorrhagic anemia; S27.321A Contusion of lung, unilateral, initial encounter; S02.92XA Unspecified fracture of facial bones, initial encounter for closed fracture; I10 Essential (primary) hypertension; E83.39 Other disorders of phosphorus metabolism; R40.2352 Coma scale, best motor response, localizes pain, at arrival to emergency department; R40.2132 Coma scale, eyes open, to sound, at arrival to emergency department; V89.2XXA Person injured in unspecified motor-vehicle accident, traffic, initial encounter; Y92.415 Exit ramp or entrance ramp of street or highway as the place of occurrence of the external cause; Y93.89 Activity, other specified
CPT/HCPCS: 23650; 31500; 36415; 36416; 36430; 51702; 70450; 70486; 71045; 71260; 72125; 72170; 74177; 76000; 76377; 80048; 80053; 80306; 80307; 81001; 82330; 82533; 82550; 82803; 82805; 83605; 83690; 83735; 84100; 85007; 85025; 85027; 85610; 85730; 86850; 86900; 86901; 87040; 87070; 87205; 90471; 90715; 93005; 94002; 94003; 94640; 96365; 96366; 96367; 96375; 99292; C1713; G0390; J0690; J1100; J1650; J1815; J1885; J1940; J2001; J2250; J2405; J2543; J2704; J2765; J3010; J3475; J3490; J7050; J7620; P9016; Q9967; S0020; S0028